=== PATIENT | female | born 1960 | race Caucasian/White ===

== ENCOUNTER 2024-06-15 11:51 | Observation (INO) ==
[2024-06-15] MEDS: ZOFRAN INJ 4 MG VIAL IVP ONE ×3 (12:21→18:15)
[2024-06-15] MEDS: MORPHINE SULFATE INJ 4 MG IVP ONE ×2 (12:22→18:07)
--- NOTE | 2024-06-15 12:31 | EKG ---
Test Reason : Dyspnea Blood Pressure : */* mmHG Vent. Rate : 80 BPM Atrial Rate : 80 BPM P-R Int : 112 ms QRS Dur : 66 ms QT Int : 424 ms P-R-T Axes : 74 88 85 degrees QTc Int : 489 ms Normal sinus rhythm Cannot rule out Anterior infarct , age undetermined Abnormal ECG No previous ECGs available Confirmed by Kaleb Thorne MD ([id number]) on 06/15/2024 4:34:32 PM Referred By: Confirmed By: Kaleb Thorne MD
[2024-06-15 12:56] LABS: BASOPHILS # (AUTO) 0.1 X10^3/uL (0.0-0.1); BASOPHILS % (AUTO) 1.4 % (0.2-1.0); EOSINOPHILS # (AUTO) 0.1 x10^3/uL (0.0-0.2); EOSINOPHILS % (AUTO) 0.7 % (0.9-2.9); HEMATOCRIT 26.3 % (36.0-47.0); HEMOGLOBIN 9.3 g/dL (12.0-16.0); LYMPHOCYTES # (AUTO) 0.9 X10^3/uL (1.3-2.9); LYMPHOCYTES % (AUTO) 11.6 % (21.0-51.0); MEAN CORPUSCULAR HEMOGLOBIN 32.7 pg (27.0-34.0); MEAN CORPUSCULAR HGB CONC 35.3 g/dL (33.0-35.0); MEAN CORPUSCULAR VOLUME 92.6 fL (80.0-100.0); MEAN PLATELET VOLUME 7.9 fL (7.4-11.0); MONOCYTES # (AUTO) 0.4 x10^3/uL (0.3-0.8); MONOCYTES % (AUTO) 4.5 % (0.0-13.0); NEUTROPHILS # (AUTO) 6.6 x10^3/uL (2.2-4.8); NEUTROPHILS % (AUTO) 81.8 % (42.0-75.0); PLATELET COUNT 231 X10^3/uL (150.0-450.0); RED BLOOD COUNT 2.84 X10^6/uL (3.5-5.4); RED CELL DISTRIBUTION WIDTH 13.5 % (11.6-16.5); WHITE BLOOD COUNT 8.1 X10^3/uL (3.6-10.0)
[2024-06-15 13:15] LABS: ALANINE AMINOTRANSFERASE 18 Units/L (12-78); ALBUMIN 2.6 g/dL (3.4-5.0); ALKALINE PHOSPHATASE 146 Units/L (46-116); ASPARTATE AMINO TRANSFERASE 36 Units/L (15-37); BLOOD UREA NITROGEN 15 mg/dL (7-18); CALCIUM 8.8 mg/dL (8.5-10.1); CARBON DIOXIDE 24.1 mmol/L (21-32); CHLORIDE 103 mmol/L (98-107); COR CA(FOR HYPOALB) 9.9 mg/dL (8.5-10.1); CREATININE 0.57 mg/dL (0.55-1.02); GLUCOSE 108 mg/dL (65-99); MAGNESIUM 1.6 mg/dL (2.0-2.9); POTASSIUM 3.4 mmol/L (3.5-5.1); SODIUM 136 mmol/L (136-145); TOTAL PROTEIN 5.6 g/dL (6.4-8.2); eGFR NON BLACK RACES > 60 (>60)
--- NOTE | 2024-06-15 14:16 | RAD ---
EXAM: Portable chest HISTORY: Chest pain, shortness of breath COMPARISON: 06/14/2024 FINDINGS: Heart size is normal. Whit are normal. Lungs are markedly hyperinflated. There is a patchy area of abnormal density in the left upper lobe lying between the 6th and 7th posterior ribs. This could represent a small infiltrate or a pulmonary nodule/neoplasm. Correlation with the patient's upcoming CTA chest is recommended. Remainder of the lung stokes appear clear. No pleural effusion or pneumo thorax is identified. Bony thorax is unremarkable. IMPRESSION: Hyperinflation consistent with COPD in the appropriate clinical setting Patchy area of abnormal parenchymal density in the left upper lobe as described above. This could re present a focus of infiltrate or a nodule/neoplasm. Correlation with the patient's upcoming CTA ches t is recommended. THIS IS AN ELECTRONICALLY VERIFIED FINAL REPORT 06/15/2024 2:13 PM - Electronically signed by Enrique Hubbard MD
--- NOTE | 2024-06-15 14:36 | CT ---
EXAM:CTA chest with contrast for pulmonary embolusHISTORY:Chest pain, shortness of breathTECHNIQUE:Axial postcontrast images with coronal and sagittal reformats. Three-dimensional maximum intensity projection images were obtained and evaluated. Dose reduction techniques were used with MA/kv adjusted for body size.COMPARISON:09/03/2023FINDINGS:There is no evidence for acute pulmonary thromboembolic disease. Examination of the mediastinum demonstrated no evidence for mediastinal masses, abnormal mediastinal or abnormal hilar adenopathy or significant aortic abnormality. No pleural effusions are identified. No chest wall or axillary abnormalities identified. Those portions of the upper abdominal organs visualized appeared within normal limits to the limitations of early arterial injection timing. Examination of the lung stokes demonstrated marked hyperinflation diffuse changes of centrilobular emphysema are identified. In the right upper lobe abutting the major fissure and best visualized on axial series 4, image 74 and coronal series 7, image 67 is an irregular pulmonary nodule measuring 1.4 x 1.3 x 1.1 cm. This is smaller than the lesion measured in the partially collapsed right upper lobe on the prior examination. The difference may be related to the surrounding atelectasis present. This is still highly suspicious for primary lung neoplasm. PET-CT is recommended for further evaluation. Redemonstrated posteriorly in the superior segment of the left lower lobe is a pleural-based parenchymal density measuring 2 x 1.4 cm. It abuts the pleura and may demonstrate cavitation. It likely represents the abnormality noted on the plain chest x-ray. It has significantly increased in size and density when compared with prior examination. Primary lung neoplasm must be excluded. PET-CT evaluation of this lesion also recommended. No alveolar infiltrates or areas of consolidation identified. No other definite pulmonary nodules are identified.IMPRESSION:2 cm x 1.4 cm pleural-based parenchymal density in the superior segment of the left lower lobe which has increased in size and density since the prior examination and likely accounts for the density identified on plain film. Primary lung neoplasm must be excluded. PET-CT is recommended for further evaluation1.4 x 1.3 x 1.1 cm irregular right upper lobe pulmonary nodule. Primary lung neoplasm must be excluded. PET-CT evaluation of this nodule also recommendedEmphysematous COPDTHIS IS AN ELECTRONICALLY VERIFIED FINAL REPORT06/15/2024 2:32 PM - Electronically signed by Enrique Hubbard MD
--- NOTE | 2024-06-15 18:16 | DR.NAUSEAF ---
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 Denies other complaints. Chief Complaint:: Patient states that for the past week she has been feeling short of breath. She states that while resting she feels like she can breathe fine, but when she moves around she gets short of breath. She also states that she has been having worse than normal back pain for the past week. She reports that she has back cancer, and takes morphine at home for relief. She states on arrival that she forgot to take her medication for pain before calling EMS. She states that she went to the ER yesterday in [place] for the same complaints, but her problems have continued. COVID-19 Coronavirus risk:travel/contact w/high risk person: No Has patient experienced Coronavirus symptoms: No Source History Provided: EMS Mode of Arrival Mode of Arrival: Stretcher Timing Onset of Chief Complaint: 06/08/24 PMH PMH Past Medical History: Yes Past Medical History: Arthritis, COPD, Depression, Dyslipidemia, Hypertension and Cancer (metastatic Lung Cancer) Past Surgical History: Yes Surgical History: Ortho Surgery Past Surgical History Comment: Foot, back, elbow Family History History of Family Medical Conditions: Yes Family Medical History: Diabetes Mellitus, Cancer, Coronary Artery Disease and Hypertension Social History Does patient currently use any type of tobacco product: Yes Have you used tobacco products in the last 12 months: Yes Type of Tobacco Use: Cigarettes Does any household member use tobacco: No Alcohol Use: None Do you use any recreational Drugs:: No Lives With: Family Lives Where: Home Travel Risk Coronavirus risk:travel/contact w/high risk person: No Has patient experienced Coronavirus symptoms: No Infectious screening In the last 2 months have you had wt loss of >10#?: NO Have you had fever, night sweats or hemotysis?: No Have you traveled outside the country in the last 6 months?: No Isolation: Standard ROS Review of Systems Constitutional: Malaise, Weakness and Fatigue Respiratoy: Short of Breath Cardiovascular: negative Chest Pain Musculoskeletal: Back Pain (diffuse) All Other Systems: Reviewed and Negative PE Vital Signs Vitals: Vital Signs Temperature 98.9 F Pulse Rate 85 Pulse Rate 65 Pulse Rate 80 Pulse Rate 83 Pulse Rate 66 Pulse Rate 71 Pulse Rate 80 Pulse Rate 80 Pulse Rate 81 Pulse Rate 81 Pulse Rate 84 Pulse Rate 86 Pulse Rate 81 Pulse Rate 86 Respiratory Rate 20 Respiratory Rate 20 Respiratory Rate 20 Blood Pressure 108/61 Blood Pressure 117/59 Blood Pressure 122/69 Blood Pressure 114/67 Blood Pressure 122/69 O2 Sat by Pulse Oximetry 99 O2 Sat by Pulse Oximetry 100 O2 Sat by Pulse Oximetry 97 O2 Sat by Pulse Oximetry 96 O2 Sat by Pulse Oximetry 100 O2 Sat by Pulse Oximetry 100 O2 Sat by Pulse Oximetry 98 O2 Sat by Pulse Oximetry 97 O2 Sat by Pulse Oximetry 97 O2 Sat by Pulse Oximetry 97 O2 Sat by Pulse Oximetry 99 O2 Sat by Pulse Oximetry 98 O2 Sat by Pulse Oximetry 98 O2 Sat by Pulse Oximetry 98 General General Appearance: Cachectic and Other (appears weak) Head Head Exam: Normal Inspection Eyes Eye exam: Normal Appearance ENT ENT Exam: Normal Exam Neck Neck Exam: Normal Inspection Chest Chest Inspection: Normal Inspection Respiratory Respiratory Exam: Normal Lung Sounds Bilat Respiratory Exam: Bilateral: Clear to Auscultation Cardiovascular Cardiovascular Exam: Regular Rate and Normal Rhythm Abdominal Exam Abdominal Exam: Normal Inspection, Normal Bowel Sounds and Soft Rectal Rectal Exam: Deferred External Exam: Female: Deferred : Speculum Exam (Female): Deferred : Bimanual Exam (female): Deferred Extremities Extremities Exam: Normal Inspection Back Back Exam: Normal Inspection Neurologic Neurological Exam: Alert and Oriented X3 Psychiatric Psychiatric Exam: Normal Affect and Normal Mood Skin Skin Exam: Warm, Dry, Intact and Normal Color ROR Labs Reviewed 06/15/24 12:34 06/15/24 12:34 Laboratory: WBC 8.1 X10^3/uL (3.6-10.0) 06/15/24 12:34 RBC 2.84 X10^6/uL (3.5-5.4) L 06/15/24 12:34 Hgb 9.3 g/dL (12.0-16.0) L 06/15/24 12:34 Hct 26.3 % (36.0-47.0) L 06/15/24 12:34 MCV 92.6 fL (80.0-100.0) 06/15/24 12:34 MCH 32.7 pg (27.0-34.0) 06/15/24 12:34 MCHC 35.3 g/dL (33.0-35.0) H 06/15/24 12:34 RDW 13.5 % (11.6-16.5) 06/15/24 12:34 Plt Count 231 X10^3/uL (150.0-450.0) 06/15/24 12:34 MPV 7.9 fL (7.4-11.0) 06/15/24 12:34 Neut % (Auto) 81.8 % (42.0-75.0) H 06/15/24 12:34 Lymph % (Auto) 11.6 % (21.0-51.0) L 06/15/24 12:34 [place] % (Auto) 4.5 % (0.0-13.0) 06/15/24 12:34 Eos % (Auto) 0.7 % (0.9-2.9) L 06/15/24 12:34 Baso % (Auto) 1.4 % (0.2-1.0) H 06/15/24 12:34 Neut # (Auto) 6.6 x10^3/uL (2.2-4.8) H 06/15/24 12:34 Lymph # (Auto) 0.9 X10^3/uL (1.3-2.9) L 06/15/24 12:34 [place] # (Auto) 0.4 x10^3/uL (0.3-0.8) 06/15/24 12:34 Eos # (Auto) 0.1 x10^3/uL (0.0-0.2) 06/15/24 12:34 Baso # (Auto) 0.1 X10^3/uL (0.0-0.1) 06/15/24 12:34 Absolute Nucleated RBC 0.0 /100WBC 06/15/24 12:34 Sodium 136 mmol/L (136-145) 06/15/24 12:34 Corrected Sodium TNP 06/15/24 12:34 Potassium 3.4 mmol/L (3.5-5.1) L 06/15/24 12:34 Chloride 103 mmol/L (98-107) 06/15/24 12:34 Carbon Dioxide 24.1 mmol/L (21-32) 06/15/24 12:34 BUN 15 mg/dL (7-18) 06/15/24 12:34 Creatinine 0.57 mg/dL (0.55-1.02) 06/15/24 12:34 Est GFR (MDRD) Af Amer > 60 (>60) 06/15/24 12:34 Est GFR (MDRD) Non-Af > 60 (>60) 06/15/24 12:34 Glucose 108 mg/dL (65-99) H 06/15/24 12:34 Calcium 8.8 mg/dL (8.5-10.1) 06/15/24 12:34 Corrected Calcium 9.9 mg/dL (8.5-10.1) 06/15/24 12:34 Magnesium 1.6 mg/dL (2.0-2.9) L 06/15/24 12:34 Total Bilirubin 0.40 mg/dL (0.2-1.0) 06/15/24 12:34 AST 36 Units/L (15-37) 06/15/24 12:34 ALT 18 Units/L (12-78) 06/15/24 12:34 Alkaline Phosphatase 146 Units/L (46-116) H 06/15/24 12:34 Troponin I High Sens 16.2 ng/L (4.0-60.0) 06/15/24 12:34 Total Protein 5.6 g/dL (6.4-8.2) L 06/15/24 12:34 Albumin 2.6 g/dL (3.4-5.0) L 06/15/24 12:34 Globulin 3.0 g/dL (2.5-4.5) 06/15/24 12:34 Albumin/Globulin Ratio 0.9 Ratio (1.1-2.1) L 06/15/24 12:34 Opioid Opioid Risk Tool Age (Adan box if 16-45): No History of Preadolescent Sexual Abuse: No Total: 0 Total Score Risk Category: Low Risk Copyright: Jamar KAPOOR predicting aberrant behaviors Discharge Plan Diagnosis Discharge Problem: Adult failure to thrive, Metastatic lung cancer (metastasis from lung to other site) Discharge Plan Patient Disposition: 09 ADMITTED INPATIENT Condition: Stable Prescriptions: No Action amlodipine 5 mg tablet 5 mg PO DAILY acyclovir 400 mg tablet 400 mg PO DIRECTED Rx Instructions: Take one tablet every 8 hours trazodone 100 mg tablet 100 mg PO HS gabapentin 300 mg capsule 300 mg PO BID zolpidem 10 mg tablet 10 mg PO HS hydromorphone 4 mg tablet 4 mg PO QID PRN (Reason: Pain) Patient Comments: [NO ORIGINAL SIG] rosuvastatin 20 mg tablet 20 mg PO DAILY tramadol 300 mg tablet extended release 24 hr 300 mg PO DAILY Health Concerns: Post Hospitalization: new medications and changes needed to prevent readmission or further decline. Pt educated and given instructions on all concerns. Plan of Treatment: Continue with present treatment and follow up plan. Pt is to keep follow up appointment as instructed and take medications as ordered. Orders to Discharge Patient Discharge Orders: Transfer (Routine); Ordered 06/15/24 Ordered By: Dmitry Packer Follow ups/Referrals Follow ups/Referrals: [facility],None [Primary Care Provider] - 3 days Instructions Stand Alone Forms: Find Help Web Site, Post Hospital Follow Up Care ADDITIONAL NOTES Additional Notes Additional Notes: Pt seen by case management here in ER, followed by hospice. Hospice nurse states she qualifies for hospice, and that she is unsafe to go home where she lives alone. Advises placement in a facility for hospice care. Admitted by Dr Bolden at 1805
[2024-06-15] MEDS: MORPHINE SULFATE INJ 4 MG ONE (19:49)
[2024-06-15] MEDS: ZOFRAN INJ 4 MG VIAL ONE ×2 (19:49)
[2024-06-15] MEDS: OMNIPAQUE 350 mg/mL 100 mL BTL 100 ML ONE (19:50)
[2024-06-15] MEDS: PROVENTIL NEB TX 0.083% 2.5MG/ 3ML NEB SCH (20:22)
[2024-06-15] MEDS: PULMICORT NEB TX 0.5 MG NEB SCH (20:22)
[2024-06-15] MEDS ORDERED: ACYCLOVIR 400 MG PO SCH (20:46)
[2024-06-15] MEDS: CRESTOR TAB 10 MG PO SCH (21:07)
[2024-06-15] MEDS: NEURONTIN CAP 300 MG PO SCH (21:07)
[2024-06-15] MEDS: NS 1,000 ML IV 1,000 ML IV SCH (21:07)
[2024-06-15] MEDS: AMBIEN PO SCH (21:07)
[2024-06-15] MEDS: DESYREL PO SCH (21:07)
[2024-06-16 05:00] LABS: BASOPHILS # (AUTO) 0.1 X10^3/uL (0.0-0.1); BASOPHILS % (AUTO) 1.2 % (0.2-1.0); EOSINOPHILS # (AUTO) 0.2 x10^3/uL (0.0-0.2); HEMATOCRIT 24.7 % (36.0-47.0); HEMOGLOBIN 8.7 g/dL (12.0-16.0); LYMPHOCYTES % (AUTO) 11.5 % (21.0-51.0); MEAN CORPUSCULAR HEMOGLOBIN 32.7 pg (27.0-34.0); MEAN CORPUSCULAR HGB CONC 35.3 g/dL (33.0-35.0); MEAN CORPUSCULAR VOLUME 92.6 fL (80.0-100.0); MEAN PLATELET VOLUME 7.9 fL (7.4-11.0); MONOCYTES # (AUTO) 0.5 x10^3/uL (0.3-0.8); MONOCYTES % (AUTO) 5.5 % (0.0-13.0); NEUTROPHILS # (AUTO) 6.6 x10^3/uL (2.2-4.8); NEUTROPHILS % (AUTO) 79.8 % (42.0-75.0); PLATELET COUNT 231 X10^3/uL (150.0-450.0); RED BLOOD COUNT 2.66 X10^6/uL (3.5-5.4); RED CELL DISTRIBUTION WIDTH 13.4 % (11.6-16.5); WHITE BLOOD COUNT 8.3 X10^3/uL (3.6-10.0)
[2024-06-16 05:03] LABS: INR 1.24 (0.8-1.3)
[2024-06-16] MEDS: ZOFRAN INJ 4 MG VIAL IVP PRN (05:19)
[2024-06-16 05:27] LABS: ALANINE AMINOTRANSFERASE 13 Units/L (12-78); ALBUMIN 2.3 g/dL (3.4-5.0); ALKALINE PHOSPHATASE 137 Units/L (46-116); ASPARTATE AMINO TRANSFERASE 29 Units/L (15-37); BLOOD UREA NITROGEN 13 mg/dL (7-18); CALCIUM 8.2 mg/dL (8.5-10.1); CARBON DIOXIDE 26.9 mmol/L (21-32); CHLORIDE 105 mmol/L (98-107); COR CA(FOR HYPOALB) 9.6 mg/dL (8.5-10.1); CREATININE 0.56 mg/dL (0.55-1.02); GLUCOSE 104 mg/dL (65-99); MAGNESIUM 1.6 mg/dL (2.0-2.9); POTASSIUM 3.2 mmol/L (3.5-5.1); SODIUM 140 mmol/L (136-145); eGFR NON BLACK RACES > 60 (>60)
[2024-06-16] MEDS: DILAUDID PO PRN ×2 (06:36→15:14)
[2024-06-16] MEDS ORDERED: PATIENT'S HOME MEDICATION (Rosuvastatin 20 mg tablet) PO SCH (09:00)
[2024-06-16] MEDS: NORVASC TAB 5 MG PO SCH (09:01)
--- NOTE | 2024-06-16 10:38 | DR.H&P ---
H&P History & Physical for Day of: H&P Date: 06/16/24 Chief Complaint Chief Complaint: generalized weakness shortness of breath chronic pain History of Present Illness History of Present Illness: Patient is a 63-year-old female with a past medical history of metastatic lung cancer. She reports cancer has spread to her spine as well. She reports a lot of pain and weakness. She has decreased po intake and nausea. She has discontinued all chemotherapy. She is followed by oncology in [place], Dr. Johnson. Patient reports chronic dyspnea that is likely due from the cancer. She has chronic pain. Labs/imaging: WBC 8.3, hemoglobin 8.7, platelets 231, sodium 140, potassium 3.2, creatinine 0.56, glucose 104. AIT pending, CTA was obtained that revealed 2 cm x 1.4 cm pleural-based parenchymal density in the superior segment of the left lower lobe which has increased in size and density since the prior examination and likely accounts for the density identified on plain film. Primary lung neoplasm must be excluded. 1.4 x 1.3 x 1.1 cm irregular right upper lobe pulmonary nodule. blood cultures pending. Patient is otherwise stable but very weak. Discussed with patient poor prognosis in the setting of no longer receiving treatments for metastatic cancer and she is also aware of that. She would like to go on hospice care. Hospice has been consulted and awaiting recommendations and plan. Patient is currently receiving IV fluids normal saline at 75 mL/h. IV Dilaudid as needed for pain control. Will replete electrolytes per protocol. Otherwise, we will continue with current treatment plan. Continue to closely monitor and follow-up labs. Patient is a DNR. Past Medical History Past Medical History: Arthritis, COPD, Depression, Dyslipidemia, Hypertension an d Cancer (metastatic Lung Cancer) Past Surgical History Surgical History: Hysterectomy and Ortho Surgery Family History Family Medical History: Cancer and Hypertension Social History Does patient currently use any type of tobacco product: No Have you used tobacco products in the last 12 months: Yes Type of Tobacco Use: None Does any household member use tobacco: No Alcohol Use: None Drug Use: None Medications Home Medications: Home Medications Medication Instructions Recorded Confirmed Type acyclovir 400 mg tablet 400 mg PO DIRECTED 06/15/24 06/15/24 History amlodipine 5 mg tablet 5 mg PO DAILY 06/15/24 06/15/24 History gabapentin 300 mg capsule 300 mg PO BID 06/15/24 06/15/24 History hydromorphone 4 mg tablet 4 mg PO QID PRN Pain 06/15/24 06/15/24 History rosuvastatin 20 mg tablet 20 mg PO DAILY 06/15/24 06/15/24 History tramadol 300 mg tablet,extended 300 mg PO DAILY 06/15/24 06/15/24 History release 24 hr trazodone 100 mg tablet 100 mg PO HS 06/15/24 06/15/24 History zolpidem 10 mg tablet 10 mg PO HS 06/15/24 06/15/24 History Allergies Allergies Allergy/AdvReac Type Severity Reaction Status Date / Time erythromycin base Allergy Verified 06/16/24 01:46 Penicillins Allergy Verified 06/16/24 01:46 Sulfa (Sulfonamide Allergy Verified 06/16/24 01:46 Antibiotics) Labs 06/16/24 04:26 06/16/24 04:26 Labs: Laboratory WBC 8.3 X10^3/uL (3.6-10.0) 06/16/24 04:26 RBC 2.66 X10^6/uL (3.5-5.4) L 06/16/24 04:26 Hgb 8.7 g/dL (12.0-16.0) L 06/16/24 04:26 Hct 24.7 % (36.0-47.0) L 06/16/24 04:26 MCV 92.6 fL (80.0-100.0) 06/16/24 04:26 MCH 32.7 pg (27.0-34.0) 06/16/24 04:26 MCHC 35.3 g/dL (33.0-35.0) H 06/16/24 04:26 RDW 13.4 % (11.6-16.5) 06/16/24 04:26 Plt Count 231 X10^3/uL (150.0-450.0) 06/16/24 04:26 MPV 7.9 fL (7.4-11.0) 06/16/24 04:26 Neut % (Auto) 79.8 % (42.0-75.0) H 06/16/24 04:26 Lymph % (Auto) 11.5 % (21.0-51.0) L 06/16/24 04:26 [place] % (Auto) 5.5 % (0.0-13.0) 06/16/24 04:26 Eos % (Auto) 2.0 % (0.9-2.9) 06/16/24 04:26 Baso % (Auto) 1.2 % (0.2-1.0) H 06/16/24 04:26 Neut # (Auto) 6.6 x10^3/uL (2.2-4.8) H 06/16/24 04:26 Lymph # (Auto) 1.0 X10^3/uL (1.3-2.9) L 06/16/24 04:26 [place] # (Auto) 0.5 x10^3/uL (0.3-0.8) 06/16/24 04:26 Eos # (Auto) 0.2 x10^3/uL (0.0-0.2) 06/16/24 04:26 Baso # (Auto) 0.1 X10^3/uL (0.0-0.1) 06/16/24 04:26 Absolute Nucleated RBC 0.0 /100WBC 06/16/24 04:26 PT 15.3 SECONDS (11.8-14.3) 06/16/24 04:26 INR Target Range - 06/16/24 04:26 INR 1.24 (0.8-1.3) 06/16/24 04:26 APTT 32.4 SECONDS (22.9-36.5) 06/16/24 04:26 PTT Comment - 06/16/24 04:26 Sodium 140 mmol/L (136-145) 06/16/24 04:26 Corrected Sodium TNP 06/16/24 04:26 Potassium 3.2 mmol/L (3.5-5.1) L 06/16/24 04:26 Chloride 105 mmol/L (98-107) 06/16/24 04:26 Carbon Dioxide 26.9 mmol/L (21-32) 06/16/24 04:26 BUN 13 mg/dL (7-18) 06/16/24 04:26 Creatinine 0.56 mg/dL (0.55-1.02) 06/16/24 04:26 Est GFR (MDRD) Af Amer > 60 (>60) 06/16/24 04:26 Est GFR (MDRD) Non-Af > 60 (>60) 06/16/24 04:26 Glucose 104 mg/dL (65-99) H 06/16/24 04:26 Calcium 8.2 mg/dL (8.5-10.1) L 06/16/24 04:26 Corrected Calcium 9.6 mg/dL (8.5-10.1) 06/16/24 04:26 Magnesium 1.6 mg/dL (2.0-2.9) L 06/16/24 04:26 Total Bilirubin 0.30 mg/dL (0.2-1.0) 06/16/24 04:26 AST 29 Units/L (15-37) 06/16/24 04:26 ALT 13 Units/L (12-78) 06/16/24 04:26 Alkaline Phosphatase 137 Units/L (46-116) H 06/16/24 04:26 Troponin I High Sens 16.2 ng/L (4.0-60.0) 06/15/24 12:34 Total Protein 5.0 g/dL (6.4-8.2) L 06/16/24 04:26 Albumin 2.3 g/dL (3.4-5.0) L 06/16/24 04:26 Globulin 2.7 g/dL (2.5-4.5) 06/16/24 04:26 Albumin/Globulin Ratio 0.9 Ratio (1.1-2.1) L 06/16/24 04:26 Review of Systems Constitutional: Weakness Eyes: No Symptoms Reported ENT: No Symptoms Reported Respiratory: Shortness of Breath Cardiovascular: No Symptoms Reported Gastrointestinal: No Symptoms Reported Genitourinary: No Symptoms Reported Musculoskeletal: No Symptoms Reported Skin: No Symptoms Reported Neurological: No Symptoms Reported Physical Exam Vital Signs: Vital Signs Temperature 98.2 F Temperature 98.1 F Pulse Rate 80 Pulse Rate 75 Pulse Rate 81 Pulse Rate 72 Pulse Rate 68 Pulse Rate 76 Pulse Rate 64 Pulse Rate 74 Respiratory Rate 17 Respiratory Rate 16 Respiratory Rate 13 Respiratory Rate 18 Respiratory Rate 11 Respiratory Rate 15 Respiratory Rate 26 Respiratory Rate 19 Blood Pressure 108/55 Blood Pressure 95/52 Blood Pressure 98/55 Blood Pressure 139/70 Blood Pressure 116/64 Blood Pressure 85/50 Blood Pressure 113/65 O2 Sat by Pulse Oximetry 98 O2 Sat by Pulse Oximetry 97 O2 Sat by Pulse Oximetry 98 O2 Sat by Pulse Oximetry 96 O2 Sat by Pulse Oximetry 100 O2 Sat by Pulse Oximetry 99 O2 Sat by Pulse Oximetry 98 O2 Sat by Pulse Oximetry 99 Oriented: Normal Eyes: Normal Ear: Normal Nose: Normal Throat: Normal Respiratory: Diminished Throughout Cardiovascular: Normal : Normal Auscultation: Bowel Sounds: Normal Palpation: Normal Tenderness: Normal Skin: Decreased [place] Musculoskeletal: Normal (cachexia) Psychiatric: Normal Mood Description: Calm and Appropriate Affect: Normal Speech Pattern: Clear and Appropriate Assessment/Plan (1) Adult failure to thrive: Status: Acute (2) Metastatic lung cancer (metastasis from lung to other site): Qualifiers: Laterality: unspecified laterality Qualified Code(s): C34.90 - Malignant neoplasm of unspecified part of unspecified bronchus or lung Status: Acute (3) Hypokalemia: Status: Acute (4) Pneumonia: Qualifiers: Pneumonia type: due to unspecified organism Laterality: unspecified laterality Lung location: unspecified part of lung Qualified Code(s): J18.9 - Pneumonia, unspecified organism Status: Acute Plan: CTA revealed lung neoplasm, pneumonia ruled out. Review H&P Reviewed: Yes Patient was examined?: Yes
[2024-06-16] MEDS: DILAUDID ONE ×3 (17:19→20:36)
[2024-06-16] MEDS: TRAMADOL 300 MG PO SCH (19:13)
[2024-06-17 06:02] LABS: BASOPHILS # (AUTO) 0.1 X10^3/uL (0.0-0.1); BASOPHILS % (AUTO) 1.2 % (0.2-1.0); EOSINOPHILS # (AUTO) 0.2 x10^3/uL (0.0-0.2); EOSINOPHILS % (AUTO) 2.3 % (0.9-2.9); HEMOGLOBIN 8.6 g/dL (12.0-16.0); LYMPHOCYTES % (AUTO) 11.6 % (21.0-51.0); MEAN CORPUSCULAR HEMOGLOBIN 33.5 pg (27.0-34.0); MEAN CORPUSCULAR VOLUME 92.9 fL (80.0-100.0); MONOCYTES # (AUTO) 0.5 x10^3/uL (0.3-0.8); MONOCYTES % (AUTO) 5.3 % (0.0-13.0); NEUTROPHILS # (AUTO) 7.1 x10^3/uL (2.2-4.8); NEUTROPHILS % (AUTO) 79.6 % (42.0-75.0); PLATELET COUNT 219 X10^3/uL (150.0-450.0); RED BLOOD COUNT 2.58 X10^6/uL (3.5-5.4); RED CELL DISTRIBUTION WIDTH 13.7 % (11.6-16.5)
[2024-06-17 06:17] LABS: ALANINE AMINOTRANSFERASE 15 Units/L (12-78); ALBUMIN 2.1 g/dL (3.4-5.0); ALKALINE PHOSPHATASE 140 Units/L (46-116); ASPARTATE AMINO TRANSFERASE 37 Units/L (15-37); BLOOD UREA NITROGEN 9 mg/dL (7-18); CALCIUM 8.1 mg/dL (8.5-10.1); CARBON DIOXIDE 30.5 mmol/L (21-32); CHLORIDE 107 mmol/L (98-107); COR CA(FOR HYPOALB) 9.6 mg/dL (8.5-10.1); CREATININE 0.42 mg/dL (0.55-1.02); GLUCOSE 104 mg/dL (65-99); MAGNESIUM 1.6 mg/dL (2.0-2.9); SODIUM 142 mmol/L (136-145); TOTAL PROTEIN 4.8 g/dL (6.4-8.2); eGFR NON BLACK RACES > 60 (>60)
[2024-06-17] MEDS ORDERED: DILAUDID ONE ×3 (07:37→18:14)
[2024-06-17] MEDS ORDERED: CONSULT PHARMACY - POTASSIUM & MAGNESIUM XX SCH (09:00)
[2024-06-17] MEDS: K-DUR TAB 20 MEQ PO SCH (10:45)
[2024-06-17] MEDS: MAGIC MOUTHWASH (Orig. Formula) MT PRN (12:16)
[2024-06-17 16:07] VITALS: BMI 12.1
[2024-06-17] MEDS: COLACE CAP 100 MG PO PRN (20:43)
[2024-06-17] MEDS: NORCO 5/325 MG TAB PO PRN (20:44)
[2024-06-18] MEDS: DILAUDID ONE ×2 (04:54→06:32)
[2024-06-18 05:46] LABS: BASOPHILS # (AUTO) 0.1 X10^3/uL (0.0-0.1); BASOPHILS % (AUTO) 1.3 % (0.2-1.0); EOSINOPHILS # (AUTO) 0.3 x10^3/uL (0.0-0.2); HEMATOCRIT 24.3 % (36.0-47.0); HEMOGLOBIN 8.5 g/dL (12.0-16.0); LYMPHOCYTES % (AUTO) 11.9 % (21.0-51.0); MEAN CORPUSCULAR HEMOGLOBIN 32.4 pg (27.0-34.0); MEAN CORPUSCULAR HGB CONC 35.1 g/dL (33.0-35.0); MEAN CORPUSCULAR VOLUME 92.4 fL (80.0-100.0); MEAN PLATELET VOLUME 8.1 fL (7.4-11.0); MONOCYTES # (AUTO) 0.4 x10^3/uL (0.3-0.8); MONOCYTES % (AUTO) 4.7 % (0.0-13.0); NEUTROPHILS % (AUTO) 79.1 % (42.0-75.0); PLATELET COUNT 233 X10^3/uL (150.0-450.0); RED BLOOD COUNT 2.63 X10^6/uL (3.5-5.4); RED CELL DISTRIBUTION WIDTH 13.5 % (11.6-16.5); WHITE BLOOD COUNT 8.8 X10^3/uL (3.6-10.0)
[2024-06-18 06:12] LABS: ALANINE AMINOTRANSFERASE 21 Units/L (12-78); ALBUMIN 2.1 g/dL (3.4-5.0); ALKALINE PHOSPHATASE 146 Units/L (46-116); ASPARTATE AMINO TRANSFERASE 44 Units/L (15-37); BLOOD UREA NITROGEN 8 mg/dL (7-18); CALCIUM 8.6 mg/dL (8.5-10.1); CARBON DIOXIDE 32.5 mmol/L (21-32); CHLORIDE 107 mmol/L (98-107); COR CA(FOR HYPOALB) 10.1 mg/dL (8.5-10.1); CREATININE 0.36 mg/dL (0.55-1.02); GLUCOSE 103 mg/dL (65-99); MAGNESIUM 1.6 mg/dL (2.0-2.9); POTASSIUM 3.2 mmol/L (3.5-5.1); SODIUM 143 mmol/L (136-145); TOTAL PROTEIN 4.9 g/dL (6.4-8.2); eGFR NON BLACK RACES > 60 (>60)
[2024-06-18] MEDS ORDERED: CONSULT PHARMACY - POTASSIUM & MAGNESIUM XX SCH (07:00)
[2024-06-18] MEDS ORDERED: MAG-OX TAB PO SCH (09:00)
[2024-06-18] MEDS ORDERED: K-DUR TAB 20 MEQ PO SCH (09:00)
--- NOTE | 2024-06-18 10:14 | PCM.PROG ---
Progress Note Progress Note for Day of Date of Exam: 06/17/24 Subjective Subjective: Patient is a 63-year-old female with a past medical history of metastatic lung cancer admitted for adult failure to thrive, deconditioning, and pneumonia. This morning she is resting comfortably in bed. No acute events overnight. Labs/imaging: WBC 9, hemoglobin 8.6, platelets 219, sodium 142, potassium 3.0, creatinine 0.42, glucose 104. AIT pending, blood cultures pending. Patient is otherwise stable but very weak. Patient is being evaluated for hospice care. Hospice has been consulted and awaiting recommendations and plan. Patient is currently receiving IV fluids normal saline at 75 mL/h. IV Dilaudid as needed for pain control. Will replete electrolytes per protocol. Otherwise, we will continue with current treatment plan. Continue to closely monitor and follow-up labs. Patient is a DNR. Past Medical Family Social History Allergies: Allergies erythromycin base Allergy (Verified 06/16/24 01:46) Penicillins Allergy (Verified 06/16/24 01:46) Sulfa (Sulfonamide Antibiotics) Allergy (Verified 06/16/24 01:46) Review of Systems ROS changes noted: see HPI Vital Signs and I&O's Vital Signs: Vital Signs Temperature 97.8 F Temperature 97.8 F Pulse Rate 103 Pulse Rate 60 Pulse Rate 67 Pulse Rate 62 Pulse Rate 79 Pulse Rate 60 Pulse Rate 74 Pulse Rate 52 Pulse Rate 87 Pulse Rate 76 Respiratory Rate 17 Respiratory Rate 21 Respiratory Rate 18 Respiratory Rate 16 Respiratory Rate 26 Respiratory Rate 12 Respiratory Rate 16 Respiratory Rate 16 Respiratory Rate 16 Respiratory Rate 14 Respiratory Rate 11 Blood Pressure 116/55 Blood Pressure 95/50 Blood Pressure 110/73 Blood Pressure 107/58 Blood Pressure 101/55 Blood Pressure 101/55 Blood Pressure 89/52 Blood Pressure 98/55 O2 Sat by Pulse Oximetry 94 O2 Sat by Pulse Oximetry 95 O2 Sat by Pulse Oximetry 95 O2 Sat by Pulse Oximetry 97 O2 Sat by Pulse Oximetry 99 O2 Sat by Pulse Oximetry 94 O2 Sat by Pulse Oximetry 92 O2 Sat by Pulse Oximetry 95 O2 Sat by Pulse Oximetry 96 O2 Sat by Pulse Oximetry 99 Intake and Output: Intake & Output 06/15/24 06/16/24 06/17/24 06/18/24 23:59 23:59 23:59 23:59 Intake Total 372 / 372 2218 / 2218 2539 / 2539 620 / 620 Output Total 550 / 550 1150 / 1150 200 / 200 Balance 372 / 372 1668 / 1668 1389 / 1389 420 / 420 Physical Exam Oriented: Normal Eyes: Normal Ear: Normal Nose: Normal Throat: Normal Respiratory: Diminished Cardiovascular: Normal : Normal Auscultation: Bowel Sounds: Normal Tenderness: Normal Skin: Decreased Turgur Musculoskeletal: Normal (cachexia) Psychiatric: Normal Mood Description: Calm and Appropriate Affect: Normal Speech Pattern: Clear and Appropriate Laboratory and Diagnostics 06/18/24 04:59 06/18/24 04:59 Labs: 06/15/24 12:41 Blood Blood Culture - Preliminary 06/15/24 12:34 Blood Blood Culture - Preliminary Laboratory WBC 8.8 X10^3/uL (3.6-10.0) 06/18/24 04:59 RBC 2.63 X10^6/uL (3.5-5.4) L 06/18/24 04:59 Hgb 8.5 g/dL (12.0-16.0) L 06/18/24 04:59 Hct 24.3 % (36.0-47.0) L 06/18/24 04:59 MCV 92.4 fL (80.0-100.0) 06/18/24 04:59 MCH 32.4 pg (27.0-34.0) 06/18/24 04:59 MCHC 35.1 g/dL (33.0-35.0) H 06/18/24 04:59 RDW 13.5 % (11.6-16.5) 06/18/24 04:59 Plt Count 233 X10^3/uL (150.0-450.0) 06/18/24 04:59 MPV 8.1 fL (7.4-11.0) 06/18/24 04:59 Neut % (Auto) 79.1 % (42.0-75.0) H 06/18/24 04:59 Lymph % (Auto) 11.9 % (21.0-51.0) L 06/18/24 04:59 [place] % (Auto) 4.7 % (0.0-13.0) 06/18/24 04:59 Eos % (Auto) 3.0 % (0.9-2.9) H 06/18/24 04:59 Baso % (Auto) 1.3 % (0.2-1.0) H 06/18/24 04:59 Neut # (Auto) 7.0 x10^3/uL (2.2-4.8) H 06/18/24 04:59 Lymph # (Auto) 1.0 X10^3/uL (1.3-2.9) L 06/18/24 04:59 [place] # (Auto) 0.4 x10^3/uL (0.3-0.8) 06/18/24 04:59 Eos # (Auto) 0.3 x10^3/uL (0.0-0.2) H 06/18/24 04:59 Baso # (Auto) 0.1 X10^3/uL (0.0-0.1) 06/18/24 04:59 Absolute Nucleated RBC 0.0 /100WBC 06/18/24 04:59 PT 15.3 SECONDS (11.8-14.3) 06/16/24 04:26 INR Target Range - 06/16/24 04:26 INR 1.24 (0.8-1.3) 06/16/24 04:26 APTT 32.4 SECONDS (22.9-36.5) 06/16/24 04:26 PTT Comment - 06/16/24 04:26 Sodium 143 mmol/L (136-145) 06/18/24 04:59 Corrected Sodium TNP 06/18/24 04:59 Potassium 3.2 mmol/L (3.5-5.1) L 06/18/24 04:59 Chloride 107 mmol/L (98-107) 06/18/24 04:59 Carbon Dioxide 32.5 mmol/L (21-32) H 06/18/24 04:59 BUN 8 mg/dL (7-18) 06/18/24 04:59 Creatinine 0.36 mg/dL (0.55-1.02) L 06/18/24 04:59 Est GFR (MDRD) Af Amer > 60 (>60) 06/18/24 04:59 Est GFR (MDRD) Non-Af > 60 (>60) 06/18/24 04:59 Glucose 103 mg/dL (65-99) H 06/18/24 04:59 Calcium 8.6 mg/dL (8.5-10.1) 06/18/24 04:59 Corrected Calcium 10.1 mg/dL (8.5-10.1) 06/18/24 04:59 Magnesium 1.6 mg/dL (2.0-2.9) L 06/18/24 04:59 Total Bilirubin 0.40 mg/dL (0.2-1.0) 06/18/24 04:59 AST 44 Units/L (15-37) H 06/18/24 04:59 ALT 21 Units/L (12-78) 06/18/24 04:59 Alkaline Phosphatase 146 Units/L (46-116) H 06/18/24 04:59 Troponin I High Sens 16.2 ng/L (4.0-60.0) 06/15/24 12:34 Total Protein 4.9 g/dL (6.4-8.2) L 06/18/24 04:59 Albumin 2.1 g/dL (3.4-5.0) L 06/18/24 04:59 Globulin 2.8 g/dL (2.5-4.5) 06/18/24 04:59 Albumin/Globulin Ratio 0.8 Ratio (1.1-2.1) L 06/18/24 04:59 Plan (1) Adult failure to thrive: Status: Acute (2) Metastatic lung cancer (metastasis from lung to other site): Status: Acute Qualifiers: Laterality: unspecified laterality Qualified Code(s): C34.90 - Malignant neoplasm of unspecified part of unspecified bronchus or lung (3) Hypokalemia: Status: Acute (4) Pneumonia: Status: Acute Qualifiers: Pneumonia type: due to unspecified organism Laterality: unspecified laterality Lung location: unspecified part of lung Qualified Code(s): J18.9 - Pneumonia, unspecified organism Plan: CTA revealed lung neoplasm, pneumonia ruled out.
[2024-06-18] MEDS: NS + KCL 20 MEQ/L 1,000 ML with MAGNESIUM SULFATE 50% INJ VIAL 2 G IV SCH (10:44)
--- NOTE | 2024-06-18 12:03 | PCM.PROG ---
Progress Note Progress Note for Day of Date of Exam: 06/18/24 Subjective Subjective: Patient seen at bedside, no acute events overnight. She is currently admitted for failure to thrive, deconditioning and metastatic lung cancer. She has metastases in the [employer] including cervical, thoracic and lumbar spine. She states her pain has not been well-controlled with the current re gimen. She will be going to hospice facility most likely Thursday if accepted. Labs/imaging reviewed: -WBC 8.8 hemoglobin 8.5 potassium 3.2 magnesium 1.6 -AIT negative -Chest x-ray COPD changes, left upper lobe neoplasm -Blood cultures negative -Reviewed imaging of the spine done at outside facility Plan: Continue supportive care. Continue pain control. Will increase [place] to 10 mg/325. Replace electrolytes as per protocol. Continue hydration. Wean O2 as tolerated. Continue antiemetics. CM working on inpatient hospice placement. Monitor a.m. labs and imaging. Past Medical Family Social History Allergies: Allergies erythromycin base Allergy (Verified 06/16/24 01:46) Penicillins Allergy (Verified 06/16/24 01:46) Sulfa (Sulfonamide Antibiotics) Allergy (Verified 06/16/24 01:46) Vital Signs and I&O's Vital Signs: Vital Signs Temperature 97.8 F Temperature 97.8 F Pulse Rate 103 Pulse Rate 60 Pulse Rate 67 Pulse Rate 62 Pulse Rate 79 Pulse Rate 60 Pulse Rate 74 Pulse Rate 52 Respiratory Rate 12 Respiratory Rate 17 Respiratory Rate 21 Respiratory Rate 18 Respiratory Rate 16 Respiratory Rate 26 Respiratory Rate 12 Respiratory Rate 16 Respiratory Rate 16 Blood Pressure 116/55 Blood Pressure 95/50 Blood Pressure 110/73 Blood Pressure 107/58 Blood Pressure 101/55 Blood Pressure 101/55 O2 Sat by Pulse Oximetry 94 O2 Sat by Pulse Oximetry 95 O2 Sat by Pulse Oximetry 95 O2 Sat by Pulse Oximetry 97 O2 Sat by Pulse Oximetry 99 O2 Sat by Pulse Oximetry 94 O2 Sat by Pulse Oximetry 92 O2 Sat by Pulse Oximetry 95 Intake and Output: Intake & Output 06/15/24 06/16/24 06/17/24 06/18/24 23:59 23:59 23:59 23:59 Intake Total 372 / 372 2218 / 2218 2539 / 2539 620 / 620 Output Total 550 / 550 1150 / 1150 200 / 200 Balance 372 / 372 1668 / 1668 1389 / 1389 420 / 420 Physical Exam Oriented: Normal Eyes: Normal Ear: Normal Nose: Normal Throat: Normal Respiratory: Diminished Cardiovascular: Normal : Normal Auscultation: Bowel Sounds: Normal Palpation: Normal Tenderness: Normal Skin: Decreased Turgur Musculoskeletal: Normal (cachexia) Psychiatric: Normal Mood Description: Calm and Appropriate Affect: Normal Speech Pattern: Clear and Appropriate Laboratory and Diagnostics 06/18/24 04:59 06/18/24 04:59 Labs: 06/15/24 12:41 Blood Blood Culture - Preliminary 06/15/24 12:34 Blood Blood Culture - Preliminary Laboratory WBC 8.8 X10^3/uL (3.6-10.0) 06/18/24 04:59 RBC 2.63 X10^6/uL (3.5-5.4) L 06/18/24 04:59 Hgb 8.5 g/dL (12.0-16.0) L 06/18/24 04:59 Hct 24.3 % (36.0-47.0) L 06/18/24 04:59 MCV 92.4 fL (80.0-100.0) 06/18/24 04:59 MCH 32.4 pg (27.0-34.0) 06/18/24 04:59 MCHC 35.1 g/dL (33.0-35.0) H 06/18/24 04:59 RDW 13.5 % (11.6-16.5) 06/18/24 04:59 Plt Count 233 X10^3/uL (150.0-450.0) 06/18/24 04:59 MPV 8.1 fL (7.4-11.0) 06/18/24 04:59 Neut % (Auto) 79.1 % (42.0-75.0) H 06/18/24 04:59 Lymph % (Auto) 11.9 % (21.0-51.0) L 06/18/24 04:59 [place] % (Auto) 4.7 % (0.0-13.0) 06/18/24 04:59 Eos % (Auto) 3.0 % (0.9-2.9) H 06/18/24 04:59 Baso % (Auto) 1.3 % (0.2-1.0) H 06/18/24 04:59 Neut # (Auto) 7.0 x10^3/uL (2.2-4.8) H 06/18/24 04:59 Lymph # (Auto) 1.0 X10^3/uL (1.3-2.9) L 06/18/24 04:59 [place] # (Auto) 0.4 x10^3/uL (0.3-0.8) 06/18/24 04:59 Eos # (Auto) 0.3 x10^3/uL (0.0-0.2) H 06/18/24 04:59 Baso # (Auto) 0.1 X10^3/uL (0.0-0.1) 06/18/24 04:59 Absolute Nucleated RBC 0.0 /100WBC 06/18/24 04:59 PT 15.3 SECONDS (11.8-14.3) 06/16/24 04:26 INR Target Range - 06/16/24 04:26 INR 1.24 (0.8-1.3) 06/16/24 04:26 APTT 32.4 SECONDS (22.9-36.5) 06/16/24 04:26 PTT Comment - 06/16/24 04:26 Sodium 143 mmol/L (136-145) 06/18/24 04:59 Corrected Sodium TNP 06/18/24 04:59 Potassium 3.2 mmol/L (3.5-5.1) L 06/18/24 04:59 Chloride 107 mmol/L (98-107) 06/18/24 04:59 Carbon Dioxide 32.5 mmol/L (21-32) H 06/18/24 04:59 BUN 8 mg/dL (7-18) 06/18/24 04:59 Creatinine 0.36 mg/dL (0.55-1.02) L 06/18/24 04:59 Est GFR (MDRD) Af Amer > 60 (>60) 06/18/24 04:59 Est GFR (MDRD) Non-Af > 60 (>60) 06/18/24 04:59 Glucose 103 mg/dL (65-99) H 06/18/24 04:59 Calcium 8.6 mg/dL (8.5-10.1) 06/18/24 04:59 Corrected Calcium 10.1 mg/dL (8.5-10.1) 06/18/24 04:59 Magnesium 1.6 mg/dL (2.0-2.9) L 06/18/24 04:59 Total Bilirubin 0.40 mg/dL (0.2-1.0) 06/18/24 04:59 AST 44 Units/L (15-37) H 06/18/24 04:59 ALT 21 Units/L (12-78) 06/18/24 04:59 Alkaline Phosphatase 146 Units/L (46-116) H 06/18/24 04:59 Troponin I High Sens 16.2 ng/L (4.0-60.0) 06/15/24 12:34 Total Protein 4.9 g/dL (6.4-8.2) L 06/18/24 04:59 Albumin 2.1 g/dL (3.4-5.0) L 06/18/24 04:59 Globulin 2.8 g/dL (2.5-4.5) 06/18/24 04:59 Albumin/Globulin Ratio 0.8 Ratio (1.1-2.1) L 06/18/24 04:59 Plan (1) Adult failure to thrive: Status: Acute (2) Metastatic lung cancer (metastasis from lung to other site): Status: Acute Qualifiers: Laterality: unspecified laterality Qualified Code(s): C34.90 - Malignant neoplasm of unspecified part of unspecified bronchus or lung (3) Hypokalemia: Status: Acute (4) Lung cancer: Status: Chronic Qualifiers: Laterality: unspecified laterality Lung location: unspecified part of lung Qualified Code(s): C34.90 - Malignant neoplasm of unspecified part of unspecified bronchus or lung (5) Hypomagnesemia: Status: Chronic
[2024-06-18] MEDS: PHENERGAN TAB 25 MG PO PRN (13:31)
[2024-06-18] MEDS: NORCO 5/325 MG TAB PO PRN (14:34)
[2024-06-18] MEDS: K-DUR TAB 20 MEQ PO SCH (14:34)
[2024-06-18] MEDS: DULCOLAX SUPPOSITORY 10 MG RECTAL ONE (14:44)
[2024-06-18] MEDS ORDERED: DILAUDID ONE (19:20)
[2024-06-19] MEDS ORDERED: DILAUDID ONE (04:44)
[2024-06-19 05:40] LABS: BASOPHILS # (AUTO) 0.2 X10^3/uL (0.0-0.1); BASOPHILS % (AUTO) 1.9 % (0.2-1.0); EOSINOPHILS # (AUTO) 0.1 x10^3/uL (0.0-0.2); EOSINOPHILS % (AUTO) 1.3 % (0.9-2.9); HEMATOCRIT 22.1 % (36.0-47.0); LYMPHOCYTES # (AUTO) 0.9 X10^3/uL (1.3-2.9); LYMPHOCYTES % (AUTO) 10.2 % (21.0-51.0); MEAN CORPUSCULAR HEMOGLOBIN 33.7 pg (27.0-34.0); MEAN CORPUSCULAR HGB CONC 36.1 g/dL (33.0-35.0); MEAN CORPUSCULAR VOLUME 93.5 fL (80.0-100.0); MEAN PLATELET VOLUME 7.9 fL (7.4-11.0); MONOCYTES # (AUTO) 0.5 x10^3/uL (0.3-0.8); MONOCYTES % (AUTO) 5.8 % (0.0-13.0); NEUTROPHILS # (AUTO) 7.5 x10^3/uL (2.2-4.8); NEUTROPHILS % (AUTO) 80.8 % (42.0-75.0); PLATELET COUNT 228 X10^3/uL (150.0-450.0); RED BLOOD COUNT 2.37 X10^6/uL (3.5-5.4); RED CELL DISTRIBUTION WIDTH 14.1 % (11.6-16.5); WHITE BLOOD COUNT 9.3 X10^3/uL (3.6-10.0)
[2024-06-19 06:05] LABS: ALANINE AMINOTRANSFERASE 19 Units/L (12-78); ALKALINE PHOSPHATASE 146 Units/L (46-116); ASPARTATE AMINO TRANSFERASE 43 Units/L (15-37); BLOOD UREA NITROGEN 8 mg/dL (7-18); CALCIUM 8.2 mg/dL (8.5-10.1); CARBON DIOXIDE 30.5 mmol/L (21-32); CHLORIDE 106 mmol/L (98-107); COR CA(FOR HYPOALB) 9.8 mg/dL (8.5-10.1); CREATININE 0.29 mg/dL (0.55-1.02); GLUCOSE 103 mg/dL (65-99); MAGNESIUM 2.1 mg/dL (2.0-2.9); POTASSIUM 3.9 mmol/L (3.5-5.1); SODIUM 142 mmol/L (136-145); TOTAL PROTEIN 4.7 g/dL (6.4-8.2); eGFR NON BLACK RACES > 60 (>60)
--- NOTE | 2024-06-19 11:15 | PCM.PROG ---
Progress Note Progress Note for Day of Date of Exam: 06/19/24 Subjective Subjective: Patient seen at bedside, no acute events overnight. She is currently admitted for failure to thrive, deconditioning and metastatic lung cancer. She has metastases in the [employer] including cervical, thoracic and lumbar spine. Her pain is better controlled with the adjustment yesterday. Nausea is also better with phenergan. She did have a BM yesterday. She will be going to hospice facility most likely Thursday if accepted. Labs/imaging reviewed: -WBC 9.3 hemoglobin 8.0 potassium 3.9 magnesium 2.1 -AIT negative -Chest x-ray COPD changes, left upper lobe neoplasm -Blood cultures negative -Reviewed imaging of the spine done at outside facility Plan: Continue supportive care. Continue pain control. Repeat H&H later this afternoon. Replace electrolytes as per protocol. Continue hydration. Wean O2 as tolerated. Continue antiemetics. Stool softners prn. CM working on inpatient hospice placement. Monitor a.m. labs and imaging. Past Medical Family Social History Allergies: Allergies erythromycin base Allergy (Verified 06/16/24 01:46) Penicillins Allergy (Verified 06/16/24 01:46) Sulfa (Sulfonamide Antibiotics) Allergy (Verified 06/16/24 01:46) Vital Signs and I&O's Vital Signs: Vital Signs Temperature 98.3 F Temperature 98.1 F Pulse Rate 76 Pulse Rate 54 Pulse Rate 58 Pulse Rate 66 Pulse Rate 72 Pulse Rate 68 Pulse Rate 66 Respiratory Rate 21 Respiratory Rate 12 Respiratory Rate 13 Respiratory Rate 13 Respiratory Rate 14 Respiratory Rate 14 Respiratory Rate 15 Respiratory Rate 14 Respiratory Rate 16 Blood Pressure 119/57 Blood Pressure 117/55 Blood Pressure 114/56 Blood Pressure 130/58 Blood Pressure 125/60 Blood Pressure 125/60 Blood Pressure 125/60 O2 Sat by Pulse Oximetry 95 O2 Sat by Pulse Oximetry 95 O2 Sat by Pulse Oximetry 95 O2 Sat by Pulse Oximetry 95 O2 Sat by Pulse Oximetry 99 O2 Sat by Pulse Oximetry 94 O2 Sat by Pulse Oximetry 95 Intake and Output: Intake & Output 06/16/24 06/17/24 06/18/24 06/20/24 23:59 23:59 23:59 00:59 Intake Total 2218 / 2218 2539 / 2539 2892 / 2892 528 / 528 Output Total 550 / 550 1150 / 1150 850 / 850 300 / 300 Balance 1668 / 1668 1389 / 1389 2 / 2041 228 / 228 Physical Exam Oriented: Normal Eyes: Normal Ear: Normal Nose: Normal Throat: Normal Respiratory: Diminished Cardiovascular: Normal Auscultation: Bowel Sounds: Normal Palpation: Normal Tenderness: Normal Skin: Decreased [place]urgur Musculoskeletal: Normal (cachexia) Psychiatric: Normal Mood Description: Calm and Appropriate Affect: Normal Speech Pattern: Clear and Appropriate Laboratory and Diagnostics 06/19/24 04:32 06/19/24 04:32 Labs: 06/15/24 12:41 Blood Blood Culture - Preliminary 06/15/24 12:34 Blood Blood Culture - Preliminary Laboratory WBC 9.3 X10^3/uL (3.6-10.0) 06/19/24 04:32 RBC 2.37 X10^6/uL (3.5-5.4) L 06/19/24 04:32 Hgb 8.0 g/dL (12.0-16.0) L 06/19/24 04:32 Hct 22.1 % (36.0-47.0) L 06/19/24 04:32 MCV 93.5 fL (80.0-100.0) 06/19/24 04:32 MCH 33.7 pg (27.0-34.0) 06/19/24 04:32 MCHC 36.1 g/dL (33.0-35.0) H 06/19/24 04:32 RDW 14.1 % (11.6-16.5) 06/19/24 04:32 Plt Count 228 X10^3/uL (150.0-450.0) 06/19/24 04:32 MPV 7.9 fL (7.4-11.0) 06/19/24 04:32 Neut % (Auto) 80.8 % (42.0-75.0) H 06/19/24 04:32 Lymph % (Auto) 10.2 % (21.0-51.0) L 06/19/24 04:32 [place] % (Auto) 5.8 % (0.0-13.0) 06/19/24 04:32 Eos % (Auto) 1.3 % (0.9-2.9) 06/19/24 04:32 Baso % (Auto) 1.9 % (0.2-1.0) H 06/19/24 04:32 Neut # (Auto) 7.5 x10^3/uL (2.2-4.8) H 06/19/24 04:32 Lymph # (Auto) 0.9 X10^3/uL (1.3-2.9) L 06/19/24 04:32 [place] # (Auto) 0.5 x10^3/uL (0.3-0.8) 06/19/24 04:32 Eos # (Auto) 0.1 x10^3/uL (0.0-0.2) 06/19/24 04:32 Baso # (Auto) 0.2 X10^3/uL (0.0-0.1) H 06/19/24 04:32 Absolute Nucleated RBC 0.1 /100WBC 06/19/24 04:32 PT 15.3 SECONDS (11.8-14.3) 06/16/24 04:26 INR Target Range - 06/16/24 04:26 INR 1.24 (0.8-1.3) 06/16/24 04:26 APTT 32.4 SECONDS (22.9-36.5) 06/16/24 04:26 PTT Comment - 06/16/24 04:26 Sodium 142 mmol/L (136-145) 06/19/24 04:32 Corrected Sodium TNP 06/19/24 04:32 Potassium 3.9 mmol/L (3.5-5.1) 06/19/24 04:32 Chloride 106 mmol/L (98-107) 06/19/24 04:32 Carbon Dioxide 30.5 mmol/L (21-32) 06/19/24 04:32 BUN 8 mg/dL (7-18) 06/19/24 04:32 Creatinine 0.29 mg/dL (0.55-1.02) L 06/19/24 04:32 Est GFR (MDRD) Af Amer > 60 (>60) 06/19/24 04:32 Est GFR (MDRD) Non-Af > 60 (>60) 06/19/24 04:32 Glucose 103 mg/dL (65-99) H 06/19/24 04:32 Calcium 8.2 mg/dL (8.5-10.1) L 06/19/24 04:32 Corrected Calcium 9.8 mg/dL (8.5-10.1) 06/19/24 04:32 Magnesium 2.1 mg/dL (2.0-2.9) 06/19/24 04:32 Total Bilirubin 0.50 mg/dL (0.2-1.0) 06/19/24 04:32 AST 43 Units/L (15-37) H 06/19/24 04:32 ALT 19 Units/L (12-78) 06/19/24 04:32 Alkaline Phosphatase 146 Units/L (46-116) H 06/19/24 04:32 Troponin I High Sens 16.2 ng/L (4.0-60.0) 06/15/24 12:34 Total Protein 4.7 g/dL (6.4-8.2) L 06/19/24 04:32 Albumin 2.0 g/dL (3.4-5.0) L 06/19/24 04:32 Globulin 2.7 g/dL (2.5-4.5) 06/19/24 04:32 Albumin/Globulin Ratio 0.7 Ratio (1.1-2.1) L 06/19/24 04:32 Plan (1) Adult failure to thrive: Status: Acute (2) Metastatic lung cancer (metastasis from lung to other site): Status: Acute Qualifiers: Laterality: unspecified laterality Qualified Code(s): C34.90 - Malignant neoplasm of unspecified part of unspecified bronchus or lung (3) Hypokalemia: Status: Acute (4) Lung cancer: Status: Chronic Qualifiers: Laterality: unspecified laterality Lung location: unspecified part of lung Qualified Code(s): C34.90 - Malignant neoplasm of unspecified part of unspecified bronchus or lung (5) Hypomagnesemia: Status: Chronic
[2024-06-19 15:16] LABS: HEMATOCRIT 22.8 % (36.0-47.0); HEMOGLOBIN 8.1 g/dL (12.0-16.0)
[2024-06-19] MEDS: DILAUDID INJ IVP PRN (18:00)
[2024-06-20 05:57] LABS: BASOPHILS # (AUTO) 0.1 X10^3/uL (0.0-0.1); BASOPHILS % (AUTO) 1.3 % (0.2-1.0); EOSINOPHILS # (AUTO) 0.1 x10^3/uL (0.0-0.2); EOSINOPHILS % (AUTO) 0.9 % (0.9-2.9); HEMOGLOBIN 7.6 g/dL (12.0-16.0); LYMPHOCYTES # (AUTO) 0.7 X10^3/uL (1.3-2.9); LYMPHOCYTES % (AUTO) 7.6 % (21.0-51.0); MEAN CORPUSCULAR HEMOGLOBIN 33.9 pg (27.0-34.0); MEAN CORPUSCULAR HGB CONC 36.2 g/dL (33.0-35.0); MEAN CORPUSCULAR VOLUME 93.6 fL (80.0-100.0); MEAN PLATELET VOLUME 8.1 fL (7.4-11.0); MONOCYTES # (AUTO) 0.5 x10^3/uL (0.3-0.8); MONOCYTES % (AUTO) 5.6 % (0.0-13.0); NEUTROPHILS # (AUTO) 7.3 x10^3/uL (2.2-4.8); NEUTROPHILS % (AUTO) 84.6 % (42.0-75.0); PLATELET COUNT 225 X10^3/uL (150.0-450.0); RED BLOOD COUNT 2.25 X10^6/uL (3.5-5.4); WHITE BLOOD COUNT 8.6 X10^3/uL (3.6-10.0)
[2024-06-20 06:15] LABS: ALANINE AMINOTRANSFERASE 18 Units/L (12-78); ALKALINE PHOSPHATASE 148 Units/L (46-116); ASPARTATE AMINO TRANSFERASE 41 Units/L (15-37); BLOOD UREA NITROGEN 8 mg/dL (7-18); CALCIUM 8.2 mg/dL (8.5-10.1); CARBON DIOXIDE 29.8 mmol/L (21-32); CHLORIDE 105 mmol/L (98-107); COR CA(FOR HYPOALB) 9.8 mg/dL (8.5-10.1); CREATININE 0.41 mg/dL (0.55-1.02); GLUCOSE 104 mg/dL (65-99); POTASSIUM 4.1 mmol/L (3.5-5.1); SODIUM 140 mmol/L (136-145); TOTAL PROTEIN 4.5 g/dL (6.4-8.2); eGFR NON BLACK RACES > 60 (>60)
--- NOTE | 2024-06-20 10:12 | PCM.PROG ---
Progress Note Progress Note for Day of Date of Exam: 06/20/24 Subjective Subjective: Patient seen at bedside, no acute events overnight. She does report increased pain, nausea and bloating. She had a small BM yesterday. She is currently admitted for failure to thrive, deconditioning and metastatic lung cancer. She has metastases in the [place] including cervical, thoracic and lumbar spine. Hgb today 7.6. Labs/imaging reviewed: -WBC 8.6 hemoglobin 7.6 potassium 4.1 -AIT negative -Chest x-ray COPD changes, left upper lobe neoplasm -Blood cultures negative -Reviewed imaging of the spine done at outside facility Plan: Transfuse 2 units PRBCs. Add pantoprazole, continue anti-emetics. Schedule colace. Continue supportive care. Continue pain control. Replace electrolytes as per protocol. Continue hydration. Wean O2 as tolerated. CM working on inpatient hospice placement. Monitor a.m. labs and imaging. Past Medical Family Social History Allergies: Allergies erythromycin base Allergy (Verified 06/16/24 01:46) Penicillins Allergy (Verified 06/16/24 01:46) Sulfa (Sulfonamide Antibiotics) Allergy (Verified 06/16/24 01:46) Vital Signs and I&O's Vital Signs: Vital Signs Temperature 98.2 F Temperature 99.1 F Pulse Rate 69 Pulse Rate 76 Respiratory Rate 16 Respiratory Rate 18 Respiratory Rate 15 Blood Pressure 123/61 Blood Pressure 143/70 O2 Sat by Pulse Oximetry 93 O2 Sat by Pulse Oximetry 91 Intake and Output: Intake & Output 06/17/24 06/18/24 06/19/24 06/20/24 22:59 22:59 23:59 23:59 Intake Total 437 / 437 Output Total 1200 / 1200 Balance -763 / -763 Physical Exam Oriented: Normal Eyes: Normal Ear: Normal Nose: Normal Throat: Normal Respiratory: Diminished Cardiovascular: Normal Auscultation: Bowel Sounds: Normal Palpation: Normal Tenderness: Normal Skin: Decreased [place]urgur Musculoskeletal: Normal (cachexia) Psychiatric: Normal Mood Description: Calm and Appropriate Affect: Normal Speech Pattern: Clear and Appropriate Laboratory and Diagnostics 06/20/24 04:48 06/20/24 04:48 Labs: 06/15/24 12:41 Blood Blood Culture - Preliminary 06/15/24 12:34 Blood Blood Culture - Preliminary Laboratory WBC 8.6 X10^3/uL (3.6-10.0) 06/20/24 04:48 RBC 2.25 X10^6/uL (3.5-5.4) L 06/20/24 04:48 Hgb 7.6 g/dL (12.0-16.0) L 06/20/24 04:48 Hct 21.0 % (36.0-47.0) L 06/20/24 04:48 MCV 93.6 fL (80.0-100.0) 06/20/24 04:48 MCH 33.9 pg (27.0-34.0) 06/20/24 04:48 MCHC 36.2 g/dL (33.0-35.0) H 06/20/24 04:48 RDW 14.0 % (11.6-16.5) 06/20/24 04:48 Plt Count 225 X10^3/uL (150.0-450.0) 06/20/24 04:48 MPV 8.1 fL (7.4-11.0) 06/20/24 04:48 Neut % (Auto) 84.6 % (42.0-75.0) H 06/20/24 04:48 Lymph % (Auto) 7.6 % (21.0-51.0) L 06/20/24 04:48 [place] % (Auto) 5.6 % (0.0-13.0) 06/20/24 04:48 Eos % (Auto) 0.9 % (0.9-2.9) 06/20/24 04:48 Baso % (Auto) 1.3 % (0.2-1.0) H 06/20/24 04:48 Neut # (Auto) 7.3 x10^3/uL (2.2-4.8) H 06/20/24 04:48 Lymph # (Auto) 0.7 X10^3/uL (1.3-2.9) L 06/20/24 04:48 [place] # (Auto) 0.5 x10^3/uL (0.3-0.8) 06/20/24 04:48 Eos # (Auto) 0.1 x10^3/uL (0.0-0.2) 06/20/24 04:48 Baso # (Auto) 0.1 X10^3/uL (0.0-0.1) 06/20/24 04:48 Absolute Nucleated RBC 0.1 /100WBC 06/20/24 04:48 PT 15.3 SECONDS (11.8-14.3) 06/16/24 04:26 INR Target Range - 06/16/24 04:26 INR 1.24 (0.8-1.3) 06/16/24 04:26 APTT 32.4 SECONDS (22.9-36.5) 06/16/24 04:26 PTT Comment - 06/16/24 04:26 Sodium 140 mmol/L (136-145) 06/20/24 04:48 Corrected Sodium TNP 06/20/24 04:48 Potassium 4.1 mmol/L (3.5-5.1) 06/20/24 04:48 Chloride 105 mmol/L (98-107) 06/20/24 04:48 Carbon Dioxide 29.8 mmol/L (21-32) 06/20/24 04:48 BUN 8 mg/dL (7-18) 06/20/24 04:48 Creatinine 0.41 mg/dL (0.55-1.02) L 06/20/24 04:48 Est GFR (MDRD) Af Amer > 60 (>60) 06/20/24 04:48 Est GFR (MDRD) Non-Af > 60 (>60) 06/20/24 04:48 Glucose 104 mg/dL (65-99) H 06/20/24 04:48 Calcium 8.2 mg/dL (8.5-10.1) L 06/20/24 04:48 Corrected Calcium 9.8 mg/dL (8.5-10.1) 06/20/24 04:48 Magnesium 2.1 mg/dL (2.0-2.9) 06/19/24 04:32 Total Bilirubin 0.50 mg/dL (0.2-1.0) 06/20/24 04:48 AST 41 Units/L (15-37) H 06/20/24 04:48 ALT 18 Units/L (12-78) 06/20/24 04:48 Alkaline Phosphatase 148 Units/L (46-116) H 06/20/24 04:48 Troponin I High Sens 16.2 ng/L (4.0-60.0) 06/15/24 12:34 Total Protein 4.5 g/dL (6.4-8.2) L 06/20/24 04:48 Albumin 2.0 g/dL (3.4-5.0) L 06/20/24 04:48 Globulin 2.5 g/dL (2.5-4.5) 06/20/24 04:48 Albumin/Globulin Ratio 0.8 Ratio (1.1-2.1) L 06/20/24 04:48 Plan (1) Anemia: Status: Acute Qualifiers: Anemia type: unspecified type Qualified Code(s): D64.9 - Anemia, unspecified (2) Adult failure to thrive: Status: Acute (3) Metastatic lung cancer (metastasis from lung to other site): Status: Acute Qualifiers: Laterality: unspecified laterality Qualified Code(s): C34.90 - Malignant neoplasm of unspecified part of unspecified bronchus or lung (4) Hypokalemia: Status: Acute (5) Lung cancer: Status: Chronic Qualifiers: Laterality: unspecified laterality Lung location: unspecified part of lung Qualified Code(s): C34.90 - Malignant neoplasm of unspecified part of unspecified bronchus or lung (6) Hypomagnesemia: Status: Chronic
[2024-06-20] MEDS: MILK OF MAGNESIA PO SCH (10:44)
[2024-06-20] MEDS: PROTONIX INJ 40 MG VIAL IVP SCH (10:45)
[2024-06-20] MEDS: COLACE CAP 100 MG PO SCH (11:00)
[2024-06-20] MEDS: NS 500 ML IV 500 ML IV ONE (13:37)
[2024-06-20] MEDS ORDERED: NS 500 ML IV 500 ML IV ONE (16:27)
[2024-06-20 21:14] LABS: HEMATOCRIT 38.5 % (36.0-47.0); HEMOGLOBIN 13.5 g/dL (12.0-16.0)
[2024-06-21 05:08] LABS: BASOPHILS # (AUTO) 0.1 X10^3/uL (0.0-0.1); BASOPHILS % (AUTO) 0.7 % (0.2-1.0); EOSINOPHILS # (AUTO) 0.1 x10^3/uL (0.0-0.2); EOSINOPHILS % (AUTO) 1.3 % (0.9-2.9); HEMATOCRIT 36.1 % (36.0-47.0); HEMOGLOBIN 13.1 g/dL (12.0-16.0); LYMPHOCYTES % (AUTO) 11.2 % (21.0-51.0); MEAN CORPUSCULAR HEMOGLOBIN 32.9 pg (27.0-34.0); MEAN CORPUSCULAR HGB CONC 36.3 g/dL (33.0-35.0); MEAN CORPUSCULAR VOLUME 90.7 fL (80.0-100.0); MEAN PLATELET VOLUME 8.1 fL (7.4-11.0); MONOCYTES # (AUTO) 0.6 x10^3/uL (0.3-0.8); MONOCYTES % (AUTO) 6.5 % (0.0-13.0); NEUTROPHILS # (AUTO) 6.9 x10^3/uL (2.2-4.8); NEUTROPHILS % (AUTO) 80.3 % (42.0-75.0); PLATELET COUNT 209 X10^3/uL (150.0-450.0); RED BLOOD COUNT 3.98 X10^6/uL (3.5-5.4); RED CELL DISTRIBUTION WIDTH 13.9 % (11.6-16.5); WHITE BLOOD COUNT 8.6 X10^3/uL (3.6-10.0)
[2024-06-21 05:35] LABS: ALANINE AMINOTRANSFERASE 18 Units/L (12-78); ALBUMIN 2.1 g/dL (3.4-5.0); ALKALINE PHOSPHATASE 163 Units/L (46-116); ASPARTATE AMINO TRANSFERASE 41 Units/L (15-37); BLOOD UREA NITROGEN 7 mg/dL (7-18); CALCIUM 8.8 mg/dL (8.5-10.1); CARBON DIOXIDE 30.7 mmol/L (21-32); CHLORIDE 105 mmol/L (98-107); COR CA(FOR HYPOALB) 10.3 mg/dL (8.5-10.1); CREATININE 0.41 mg/dL (0.55-1.02); GLUCOSE 95 mg/dL (65-99); POTASSIUM 4.3 mmol/L (3.5-5.1); SODIUM 139 mmol/L (136-145); TOTAL PROTEIN 4.9 g/dL (6.4-8.2); eGFR NON BLACK RACES > 60 (>60)
[2024-06-21 09:53] VITALS: BP 149/69; PULSE 65; RESP 12; TEMP 98.2; O2SAT 98
[2024-06-21] MEDS ORDERED: PATIENT'S HOME MEDICATION EACHEYE SCH (10:00)
== END 2024-06-21 10:30 ==
LOC: ER 11:51 → ICU 11:51
PROVIDERS: ADMIT Family Medicine; ATTEND Internal Medicine